=== PATIENT | male | born 1955 | race Caucasian/White ===

== ENCOUNTER 2017-04-12 13:44 | Observation (INO) | payer BC ==
[2017-04-12] MEDS ORDERED: Albuterol-Ipratrop 3 mg / 0.5 (3 ml) UD INH STA (14:23)
[2017-04-12] MEDS ORDERED: Sodium Chloride 0.9% 500 ML IV STA (14:24)
--- NOTE | 2017-04-12 14:32 | ED PDOC ---
HPI: Chest Pain Time Seen by Provider: 04/12/17 14:09 Chief Complaint (Nursing): Chest Pain Chief Complaint (Provider): Chest Pain History Per: Patient History/Exam Limitations: no limitations Onset/Duration Of Symptoms: Days (x 4) Current Symptoms Are (Timing): Still Present Additional Complaint(s): Jaun is a 62 year old male who presents to the emergency department with chest pain for 4 days. Patient states pain comes and goes, but has been constant today. Patient reports shortness of breath. Patient states he went to an urgent care today and was told to come here for further evaluation. Denies headache, dizziness, weakness, numbness, tenderness, calf pain, tenderness in the calf, long distance travel and abdominal pain. PMD: No Family Provider Past Medical History Reviewed: Historical Data, Nursing Documentation, Vital Signs Vital Signs: Last Vital Signs Temp 98.1 F 04/12/17 14:04 Pulse 119 H 04/12/17 14:04 Resp 16 04/12/17 14:04 BP 145/92 H 04/12/17 14:04 Pulse Ox 96 04/12/17 14:44 - Medical History PMH: Asthma, Seizures - Surgical History Surgical History: Appendectomy, Cholecystectomy - Family History Family History: States: Unknown Family Hx - Home Medications Home Medications: Ambulatory Orders Medication Instructions Recorded Meclizine [Meclizine*] 1 - 2 tab PO Q6 #30 tab 02/17/16 Ondansetron ODT [Zofran ODT] 4 mg PO TID #21 odt 02/17/16 Tamsulosin [Flomax] 0.4 mg PO DAILY #15 cap 02/25/17 - Allergies Allergies/Adverse Reactions: Allergies Allergy/AdvReac Type Severity Reaction Status Date / Time codeine AdvReac NAUSEA Verified 04/12/17 14:06 paprika Allergy SHORTNESS Uncoded 02/16/16 22:40 OF BREATH Review of Systems ROS Statement: Except As Marked, All Systems Reviewed And Found Negative Constitutional: Negative for: Weakness, Other (Numbness) Cardiovascular: Positive for: Chest Pain Respiratory: Positive for: Shortness of Breath Gastrointestinal: Negative for: Abdominal Pain Musculoskeletal: Negative for: Other (Calf pain and tenderness in the calf) Neurological: Negative for: Headache Physical Exam - Reviewed Nursing Documentation Reviewed: Yes Vital Signs Reviewed: Yes - Physical Exam Appears: Positive for: Non-toxic, No Acute Distress Head Exam: Positive for: ATRAUMATIC, NORMOCEPHALIC Skin: Positive for: Warm, Dry Eye Exam: Positive for: Normal appearance, EOMI, PERRL ENT: Positive for: Normal ENT Inspection Neck: Positive for: Normal, Supple Cardiovascular/Chest: Positive for: Regular Rate, Rhythm. Negative for: Murmur Respiratory: Positive for: Normal Breath Sounds. Negative for: Respiratory Distress Gastrointestinal/Abdominal: Positive for: Normal Exam, Soft. Negative for: Tenderness Back: Positive for: Normal Inspection. Negative for: L CVA Tenderness, R CVA Tenderness Extremity: Positive for: Normal ROM. Negative for: Pedal Edema, Deformity Neurologic/Psych: Positive for: Alert, Oriented - Laboratory Results Result Diagrams: 04/12/17 14:45 04/12/17 14:45 - ECG ECG: Positive for: Interpreted By Me, Viewed By Me ECG Rhythm: Positive for: Normal QRS, Normal ST Segment, Sinus Rhythm O2 Sat by Pulse Oximetry: 96 (RA) Pulse Ox Interpretation: Normal - Radiology X-Ray: Read By Radiologist X-Ray Interpretation: No Acute Disease - Progress ED Course And Treament: 1625: Stable. AAOx3. Pain free. Spoke with hospitalist Dr. Baldwin. Will admit obs tele. Medical Decision Making Medical Decision Making: Time: 14:23 Impression: Chest Pain Evaluation Plan: - EKG - B-Type Natriuretic Peptide - CMP - Troponion I - CBC - Partial Thromboplastin Time - Prothrombin Time - Portable Chest X-Ray - Aspirin 325 mg PO - Duoneb 3 mg /0.5 mg (3 ml) UD - Sodium Chloride 0.9% 500 ml IV 100 mls/hr Time: 14:38 Chest X-Ray FINDINGS: LUNGS: No active pulmonary disease. PLEURA: No significant pleural effusion identified, no pneumothorax apparent. CARDIOVASCULAR: Normal. OSSEOUS STRUCTURES: Unchanged. VISUALIZED UPPER ABDOMEN: Normal. OTHER FINDINGS: None. IMPRESSION: No active disease. Scribe Attestation: Documented by Rom Kearns, acting as a scribe for Jonel Mays MD Provider Scribe Attestation: All medical record entries made by the Scribe were at my direction and personally dictated by me. I have reviewed the chart and agree that the record accurately reflects my personal performance of the history, physical exam, medical decision making, and the department course for this patient. I have also personally directed, reviewed, and agree with the discharge instructions and disposition. Disposition - Clinical Impression Clinical Impression: Chest pain - Patient ED Disposition Is Patient to be Admitted: Yes Counseled Patient/Family Regarding: Studies Performed, Diagnosis - Disposition Disposition Time: 16:26 Condition: FAIR - Pt Status Changed To: Hospital Disposition Of: Observation - POA Present On Arrival: None Core Measure Indicators: Chest Pain
--- NOTE | 2017-04-12 14:40 | RAD ---
HISTORY: dyspnea COMPARISON: Chest radiograph dated 09/08/2015 FINDINGS: LUNGS: No active pulmonary disease. PLEURA: No significant pleural effusion identified, no pneumothorax apparent. CARDIOVASCULAR: Normal. OSSEOUS STRUCTURES: Unchanged. VISUALIZED UPPER ABDOMEN: Normal. OTHER FINDINGS: None. IMPRESSION: No active disease.
[2017-04-12 14:58] LABS: BASO # 0.1 K/uL (0.0-0.2); BASO % 0.6 % (0.0-2.0); EOS # 0.2 K/uL (0.0-0.7); EOS % 1.5 % (0.0-4.0); HEMATOCRIT 44.6 % (35.0-51.0); LYMPH # 2.1 K/uL (1.0-4.3); LYMPH % 15.3 % (20.0-40.0); MEAN CELL VOLUME 86.6 fl (80.0-94.0); MEAN CORPUSCULAR HEMOGLOBIN 28.5 pg (27.0-31.0); MEAN PLATELET VOLUME 8.1 fl (7.2-11.7); MONO # 0.7 K/uL (0.0-0.8); NEUT # 10.7 K/uL (1.8-7.0); NEUT % 77.6 % (50.0-75.0); RED CELL DISTRIBUTION WIDTH 15.1 % (11.5-14.5); WHITE BLOOD COUNT 13.8 K/uL (4.8-10.8)
[2017-04-12] MEDS ORDERED: Albuterol-Ipratrop 3 mg / 0.5 (3 ml) UD ONE (14:58)
[2017-04-12 15:07] LABS: ALB/GLOB RATIO 1.3 (1.0-2.1); ALKALINE PHOSPHATASE 69 U/L (38-126); ALT/SGPT 30 U/L (21-72); AST/SGOT 17 U/L (17-59); BILIRUBIN,TOTAL 0.4 mg/dl (0.2-1.3); BLOOD UREA NITROGEN 20 mg/dl (9-20); CALCIUM 9.1 mg/dL (8.4-10.2); CARBON DIOXIDE 25 mmol/L (22-30); CHLORIDE 107 mmol/L (98-107); GFR AFRICAN-AMERICAN > 60; GLUCOSE,RANDOM 130 mg/dL (75-110); LIPASE 97 U/L (23-300); POTASSIUM 3.6 MMOL/L (3.6-5.0); SODIUM 143 mmol/l (132-148); TOTAL PROTEIN 7.2 G/DL (6.3-8.2)
[2017-04-12 15:24] LABS: PARTIAL THROMBOPLASTIN TIME 25.7 Seconds (25.6-37.1)
--- NOTE | 2017-04-12 17:33 | CP.PCM.HP ---
History of Present Illness - History of Present Illness History of Present Illness: Chief Complaint: dyspnea, chest pain HPI: 62 year old male BPH, asthma, GERD, morbid obesity presents to the emergency room with a 4 day history of on and off worsening moderate sternal chest pain/pressure and dyspnea while at rest, associated with some diaphoresis as well. Patient states it does not feel the same as when he gets heartburn. HD stable, NAD. Obstele for cardiac monitoring, trend cardiac enzymes and to be evaluated by Cardiology in AM. ROS: as per HPI, all other systems reviewed and negative by me PMH: BPH, asthma, GERD, morbid obesity PSH: appendectomy, cholecystectomy, tonsillectomy Family History: Parkinsons, DM, HTN Social History: denies tobacco, etoh, ivdu Home Medications: as above Allergies: codeine, paprika Temp Pulse Resp BP Pulse Ox 98 F 89 19 138/98 H 100 04/12/17 17:24 04/12/17 17:24 04/12/17 17:24 04/12/17 17:24 04/12/17 17:24 Constitutional- cooperative, awake, alert. Head- NCAT, PERRL Eye- PERRL, normal accommodation ENT- normal exam, MMM. Neck- normal inspection, supple, no JVD Respiratory- CTAB, no wheezes rales rhonchi Cardiovascular- RRR, +S1, +S2 no MRG GI/Abdominal- normal bowel sounds, soft Skin- warm, dry Extremities Exam- normal capillary refill, normal inspection Neurological Exam- alert, oriented Psych- normal mood, normal affect Labs: Most Recent Lab Values WBC 13.8 K/uL (4.8-10.8) H 04/12/17 14:45 RBC 5.15 Mil/uL (4.40-5.90) 04/12/17 14:45 Hgb 14.7 g/dL (12.0-18.0) 04/12/17 14:45 Hct 44.6 % (35.0-51.0) 04/12/17 14:45 MCV 86.6 fl (80.0-94.0) D 04/12/17 14:45 MCH 28.5 pg (27.0-31.0) 04/12/17 14:45 MCHC 33.0 g/dL (33.0-37.0) 04/12/17 14:45 RDW 15.1 % (11.5-14.5) H 04/12/17 14:45 Plt Count 287 K/uL (130-400) 04/12/17 14:45 MPV 8.1 fl (7.2-11.7) 04/12/17 14:45 Neut % (Auto) 77.6 % (50.0-75.0) H 04/12/17 14:45 Lymph % (Auto) 15.3 % (20.0-40.0) L 04/12/17 14:45 [place] % (Auto) 5.0 % (0.0-10.0) 04/12/17 14:45 Eos % (Auto) 1.5 % (0.0-4.0) 04/12/17 14:45 Baso % (Auto) 0.6 % (0.0-2.0) 04/12/17 14:45 Neut # 10.7 K/uL (1.8-7.0) H 04/12/17 14:45 Lymph # 2.1 K/uL (1.0-4.3) 04/12/17 14:45 [place] # 0.7 K/uL (0.0-0.8) 04/12/17 14:45 Eos # 0.2 K/uL (0.0-0.7) 04/12/17 14:45 Baso # 0.1 K/uL (0.0-0.2) 04/12/17 14:45 PT 12.6 Seconds (9.8-13.1) 04/12/17 14:45 INR 1.1 (0.9-1.2) 04/12/17 14:45 APTT 25.7 Seconds (25.6-37.1) 04/12/17 14:45 Sodium 143 mmol/l (132-148) 04/12/17 14:45 Potassium 3.6 MMOL/L (3.6-5.0) 04/12/17 14:45 Chloride 107 mmol/L (98-107) 04/12/17 14:45 Carbon Dioxide 25 mmol/L (22-30) 04/12/17 14:45 Anion Gap 15 (10-20) 04/12/17 14:45 BUN 20 mg/dl (9-20) 04/12/17 14:45 Creatinine 0.8 mg/dl (0.8-1.5) 04/12/17 14:45 Est GFR ( Amer) > 60 04/12/17 14:45 Est GFR (Non-Af Amer) > 60 04/12/17 14:45 Random Glucose 130 mg/dL (75-110) H 04/12/17 14:45 Calcium 9.1 mg/dL (8.4-10.2) 04/12/17 14:45 Total Bilirubin 0.4 mg/dl (0.2-1.3) 04/12/17 14:45 AST 17 U/L (17-59) 04/12/17 14:45 ALT 30 U/L (21-72) 04/12/17 14:45 Alkaline Phosphatase 69 U/L (38-126) 04/12/17 14:45 Troponin I < 0.0120 ng/mL (0.00-0.120) 04/12/17 14:45 NT-Pro-B Natriuret Pep 32.6 pg/ml (0-900) 04/12/17 14:45 Total Protein 7.2 G/DL (6.3-8.2) 04/12/17 14:45 Albumin 4.1 g/dL (3.5-5.0) 04/12/17 14:45 Globulin 3.1 gm/dL (2.2-3.9) 04/12/17 14:45 Albumin/Globulin Ratio 1.3 (1.0-2.1) 04/12/17 14:45 Lipase 97 U/L (23-300) 04/12/17 14:45 Assessment and Plan: 62 year old male BPH, asthma, GERD, morbid obesity presents to the emergency room with a 4 day history of on and off worsening moderate sternal chest pain/ pressure and dyspnea while at rest, associated with some diaphoresis as well. Patient states it does not feel the same as when he gets heartburn. HD stable, NAD. Obstele for cardiac monitoring, trend cardiac enzymes and to be evaluated by Cardiology in AM. CHEST PAIN Cardiology consult Dr. Nishant Field appreciated and followed trend cardiac enzymes, EKG in AM Metoprolol Succinate [Toprol XL] 25 mg PO DAILY Clopidogrel [Plavix] 75 mg PO DAILY Aspirin [Aspirin Chewable] 81 mg PO DAILY Atorvastatin [Lipitor] 20 mg PO DAILY GERD Famotidine [Pepcid] 20 mg PO BID ASTHMA Levalbuterol [Xopenex] 1.25 mg INH RQ8 PRN BPH Tamsulosin [Flomax] 0.4 mg PO DAILY Enoxaparin [Lovenox] 40 mg SC DAILY Present on Admission - Present on Admission Any Indicators Present on Admission: No Past Patient History - Past Social History Smoking Status: Never Smoked - PULMONARY Hx Asthma: Yes - NEUROLOGICAL Hx Seizures: Yes - PSYCHIATRIC Hx Substance Use: No - SURGICAL HISTORY Hx Appendectomy: Yes Hx Cholecystectomy: Yes - ANESTHESIA Hx Anesthesia: No Meds Allergies/Adverse Reactions: Allergies Allergy/AdvReac Type Severity Reaction Status Date / Time codeine AdvReac NAUSEA Verified 04/12/17 14:06 paprika Allergy SHORTNESS Uncoded 02/16/16 22:40 OF BREATH Results - Vital Signs Recent Vital Signs: Last Vital Signs Temp 98 F 04/12/17 17:24 Pulse 89 04/12/17 17:24 Resp 19 04/12/17 17:24 BP 138/98 H 04/12/17 17:24 Pulse Ox 100 04/12/17 17:24 - Labs Result Diagrams: 04/12/17 14:45 04/12/17 14:45 Labs: Laboratory Results - last 24 hr 04/12/17 04/12/17 04/12/17 14:45 14:45 14:45 WBC 13.8 H RBC 5.15 Hgb 14.7 Hct 44.6 MCV 86.6 D MCH 28.5 MCHC 33.0 RDW 15.1 H Plt Count 287 MPV 8.1 Neut % (Auto) 77.6 H Lymph % (Auto) 15.3 L [place] % (Auto) 5.0 Eos % (Auto) 1.5 Baso % (Auto) 0.6 Neut # 10.7 H Lymph # 2.1 [place] # 0.7 Eos # 0.2 Baso # 0.1 PT 12.6 INR 1.1 APTT 25.7 Sodium 143 Potassium 3.6 Chloride 107 Carbon Dioxide 25 Anion Gap 15 BUN 20 Creatinine 0.8 Est GFR ( Amer) > 60 Est GFR (Non-Af Amer) > 60 Random Glucose 130 H Calcium 9.1 Total Bilirubin 0.4 AST 17 ALT 30 Alkaline Phosphatase 69 Troponin I < 0.0120 NT-Pro-B Natriuret Pep 32.6 Total Protein 7.2 Albumin 4.1 Globulin 3.1 Albumin/Globulin Ratio 1.3 Lipase 97
[2017-04-12] MEDS ORDERED: Levalbuterol 1.25 MG/3 ML Inhal Soln UD INH PRN (17:35)
[2017-04-12] MEDS: Metoprolol Succinate 25 mg XL Tab PO SCH (18:14)
[2017-04-13 00:48] VITALS: RESP 20
[2017-04-13 05:17] LABS: BASO # 0.1 K/uL (0.0-0.2); BASO % 1.1 % (0.0-2.0); EOS # 0.4 K/uL (0.0-0.7); EOS % 3.6 % (0.0-4.0); HEMATOCRIT 45.8 % (35.0-51.0); LYMPH # 2.9 K/uL (1.0-4.3); LYMPH % 23.9 % (20.0-40.0); MEAN CELL VOLUME 86.2 fl (80.0-94.0); MEAN CORPUSCULAR HGB CONC 32.5 g/dL (33.0-37.0); MONO # 0.8 K/uL (0.0-0.8); MONO % 6.5 % (0.0-10.0); NEUT # 7.9 K/uL (1.8-7.0); NEUT % 64.9 % (50.0-75.0); RED CELL DISTRIBUTION WIDTH 14.8 % (11.5-14.5); WHITE BLOOD COUNT 12.1 K/uL (4.8-10.8)
[2017-04-13 05:27] LABS: BLOOD UREA NITROGEN 16 mg/dl (9-20); CALCIUM 8.6 mg/dL (8.4-10.2); CARBON DIOXIDE 25 mmol/L (22-30); CHLORIDE 107 mmol/L (98-107); CHOLESTEROL 163 mg/dL (0-199); GFR AFRICAN-AMERICAN > 60; GLUCOSE,RANDOM 101 mg/dL (75-110); POTASSIUM 3.8 MMOL/L (3.6-5.0); SODIUM 141 mmol/l (132-148)
[2017-04-13 08:41] VITALS: PULSE 83; TEMP 98.2; O2SAT 96
[2017-04-13] MEDS: Metoprolol Succinate 25 mg XL Tab PO SCH (08:58)
[2017-04-13] MEDS ORDERED: Enoxaparin 40 mg Syringe SC SCH (09:00)
--- NOTE | 2017-04-13 10:02 | CP.PCM.CON ---
History of Present Illness - History of Present Illness History of Present Illness: This 62-year-old chronically overweight sedentary man came to the emergency room after experiencing increasing sense of chest discomfort which he ascribes to an overheated apartment. The patient has had a long history of bronchial asthma for which she uses a broncho-dilator. He is not a smoker and has no history of hypertension or diabetes. There has never been effort related chest discomfort or prior myocardial infarction or symptoms of congestive cardiac failure. There is no family history of diabetes hypertension or vascular disease. The patient describes this sensation as in the middle of his chest without any radiation without any perspiration nausea or palpitations. Physical examination shows a middle aged overweight man sitting up in a chair comfortable without any discomfort. He breathes at 16-18 breaths per minute and admits to having used broncho-dilator containing albuterol approximately one hour back. He has a heart rate of 78 bpm regular and a blood pressure of 144/94 mmHg in his right upper extremity. His jugular venous pressure was not elevated and there was no edema over his lower extremities. His pedal pulses were well felt. Extremities were warm and his nailbed where pink. There was no central or peripheral cyanosis. There was no clubbing there was no lymphadenopathy. The apex was not palpable the first and second heart sounds were normal. There was no murmur no gallop and no rales. His abdomen was soft his liver and spleen are not palpable. His electro-cardial gram showed sinus rhythm with no ST-T abnormalities indicative of active myocardial ischemia. His lab tests show a normal hemoglobin and hematocrit and platelet count. His BUN/creatinine and electrolytes were normal. His troponin level 2 were normal indicating no evidence of myocyte injury. Impression: Atypical chest pain with no evidence of acute coronary syndrome. History of bronchial asthma. The patient may be allowed to return home and be managed as an outpatient. Past Patient History - Past Medical History & Family History Past Medical History?: Yes - Past Social History Smoking Status: Never Smoked - CARDIAC Hx Cardiac Disorders: No - PULMONARY Hx Respiratory Disorders: Yes Hx Asthma: Yes - NEUROLOGICAL Hx Neurological Disorder: Yes Hx Vertigo: Yes - HEENT Hx HEENT Problems: No - RENAL Hx Chronic Kidney Disease: No - ENDOCRINE/METABOLIC Hx Endocrine Disorders: No - HEMATOLOGICAL/ONCOLOGICAL Hx Blood Disorders: No Hx Human Immunodeficiency Virus (HIV): No - INTEGUMENTARY Hx Dermatological Problems: No - MUSCULOSKELETAL/RHEUMATOLOGICAL Hx Musculoskeletal Disorders: No Hx Falls: No - GASTROINTESTINAL Hx Gastrointestinal Disorders: Yes Hx Gastroesophageal Reflux: Yes - GENITOURINARY/GYNECOLOGICAL Hx Genitourinary Disorders: No - PSYCHIATRIC Hx Psychophysiologic Disorder: No Hx Substance Use: No - SURGICAL HISTORY Hx Surgeries: Yes Hx Appendectomy: Yes Hx Cholecystectomy: Yes - ANESTHESIA Hx Anesthesia: Yes Meds Allergies/Adverse Reactions: Allergies Allergy/AdvReac Type Severity Reaction Status Date / Time codeine AdvReac NAUSEA Verified 04/12/17 14:06 paprika Allergy SHORTNESS Uncoded 02/16/16 22:40 OF BREATH - Medications Medications: Current Medications Aspirin (Aspirin Chewable) 81 mg PO DAILY [facility] Last Admin: 04/13/17 08:57 Dose: 81 mg Atorvastatin Calcium (Lipitor) 20 mg PO DAILY [facility] Last Admin: 04/13/17 08:57 Dose: 20 mg Clopidogrel Bisulfate (Plavix) 75 mg PO DAILY [facility] Last Admin: 04/13/17 08:58 Dose: 75 mg Enoxaparin Sodium (Lovenox) 40 mg SC DAILY [facility] PRN Reason: Protocol Last Admin: 04/13/17 08:58 Dose: 40 mg Famotidine (Pepcid) 20 mg PO BID [facility] Last Admin: 04/13/17 08:58 Dose: 20 mg Levalbuterol HCl (Xopenex) 1.25 mg INH RQ8 PRN PRN Reason: Shortness of Breath Metoprolol Succinate (Toprol Xl) 25 mg PO DAILY [facility] Last Admin: 04/13/17 08:58 Dose: 25 mg Tamsulosin HCl (Flomax) 0.4 mg PO DAILY [facility] Last Admin: 04/13/17 08:57 Dose: 0.4 mg Results - Vital Signs Recent Vital Signs: Last Vital Signs Temp 98.2 F 04/13/17 08:00 Pulse 83 04/13/17 09:00 Resp 20 04/13/17 08:00 BP 158/102 H 04/13/17 08:58 Pulse Ox 96 04/13/17 08:00 - Labs Result Diagrams: 04/13/17 04:45 04/13/17 04:45 Labs: Laboratory Results - last 24 hr 04/12/17 04/12/17 04/12/17 14:45 14:45 14:45 WBC 13.8 H RBC 5.15 Hgb 14.7 Hct 44.6 MCV 86.6 D MCH 28.5 MCHC 33.0 RDW 15.1 H Plt Count 287 MPV 8.1 Neut % (Auto) 77.6 H Lymph % (Auto) 15.3 L [place] % (Auto) 5.0 Eos % (Auto) 1.5 Baso % (Auto) 0.6 Neut # 10.7 H Lymph # 2.1 [place] # 0.7 Eos # 0.2 Baso # 0.1 PT 12.6 INR 1.1 APTT 25.7 Sodium 143 Potassium 3.6 Chloride 107 Carbon Dioxide 25 Anion Gap 15 BUN 20 Creatinine 0.8 Est GFR ( Amer) > 60 Est GFR (Non-Af Amer) > 60 Random Glucose 130 H Calcium 9.1 Total Bilirubin 0.4 AST 17 ALT 30 Alkaline Phosphatase 69 Troponin I < 0.0120 NT-Pro-B Natriuret Pep 32.6 Total Protein 7.2 Albumin 4.1 Globulin 3.1 Albumin/Globulin Ratio 1.3 Triglycerides Cholesterol LDL Cholesterol Direct HDL Cholesterol Lipase 97 04/13/17 04/13/17 04:45 04:45 WBC 12.1 H RBC 5.31 Hgb 14.9 Hct 45.8 MCV 86.2 MCH 28.0 MCHC 32.5 L RDW 14.8 H Plt Count 280 MPV 8.0 Neut % (Auto) 64.9 Lymph % (Auto) 23.9 [place] % (Auto) 6.5 Eos % (Auto) 3.6 Baso % (Auto) 1.1 Neut # 7.9 H Lymph # 2.9 [place] # 0.8 Eos # 0.4 Baso # 0.1 PT INR APTT Sodium 141 Potassium 3.8 Chloride 107 Carbon Dioxide 25 Anion Gap 13 BUN 16 Creatinine 0.7 L Est GFR ( Amer) > 60 Est GFR (Non-Af Amer) > 60 Random Glucose 101 Calcium 8.6 Total Bilirubin AST ALT Alkaline Phosphatase Troponin I < 0.0120 NT-Pro-B Natriuret Pep Total Protein Albumin Globulin Albumin/Globulin Ratio Triglycerides 138 Cholesterol 163 LDL Cholesterol Direct 63 HDL Cholesterol 56 Lipase
--- NOTE | 2017-04-13 10:39 | CP.PCM.DIS ---
Provider - Provider Date of Admission: 04/12/17 16:26 Attending physician: Cass Baldwin DO Time Spent in preparation of Discharge (in minutes): 30 Diagnosis - Discharge Diagnosis (1) Chest pain Status: Acute Hospital Course - Lab Results Lab Results: Most Recent Lab Values WBC 12.1 K/uL (4.8-10.8) H 04/13/17 04:45 RBC 5.31 Mil/uL (4.40-5.90) 04/13/17 04:45 Hgb 14.9 g/dL (12.0-18.0) 04/13/17 04:45 Hct 45.8 % (35.0-51.0) 04/13/17 04:45 MCV 86.2 fl (80.0-94.0) 04/13/17 04:45 MCH 28.0 pg (27.0-31.0) 04/13/17 04:45 MCHC 32.5 g/dL (33.0-37.0) L 04/13/17 04:45 RDW 14.8 % (11.5-14.5) H 04/13/17 04:45 Plt Count 280 K/uL (130-400) 04/13/17 04:45 MPV 8.0 fl (7.2-11.7) 04/13/17 04:45 Neut % (Auto) 64.9 % (50.0-75.0) 04/13/17 04:45 Lymph % (Auto) 23.9 % (20.0-40.0) 04/13/17 04:45 [place] % (Auto) 6.5 % (0.0-10.0) 04/13/17 04:45 Eos % (Auto) 3.6 % (0.0-4.0) 04/13/17 04:45 Baso % (Auto) 1.1 % (0.0-2.0) 04/13/17 04:45 Neut # 7.9 K/uL (1.8-7.0) H 04/13/17 04:45 Lymph # 2.9 K/uL (1.0-4.3) 04/13/17 04:45 [place] # 0.8 K/uL (0.0-0.8) 04/13/17 04:45 Eos # 0.4 K/uL (0.0-0.7) 04/13/17 04:45 Baso # 0.1 K/uL (0.0-0.2) 04/13/17 04:45 PT 12.6 Seconds (9.8-13.1) 04/12/17 14:45 INR 1.1 (0.9-1.2) 04/12/17 14:45 APTT 25.7 Seconds (25.6-37.1) 04/12/17 14:45 Sodium 141 mmol/l (132-148) 04/13/17 04:45 Potassium 3.8 MMOL/L (3.6-5.0) 04/13/17 04:45 Chloride 107 mmol/L (98-107) 04/13/17 04:45 Carbon Dioxide 25 mmol/L (22-30) 04/13/17 04:45 Anion Gap 13 (10-20) 04/13/17 04:45 BUN 16 mg/dl (9-20) 04/13/17 04:45 Creatinine 0.7 mg/dl (0.8-1.5) L 04/13/17 04:45 Est GFR ( Amer) > 60 04/13/17 04:45 Est GFR (Non-Af Amer) > 60 04/13/17 04:45 Random Glucose 101 mg/dL (75-110) 04/13/17 04:45 Calcium 8.6 mg/dL (8.4-10.2) 04/13/17 04:45 Total Bilirubin 0.4 mg/dl (0.2-1.3) 04/12/17 14:45 AST 17 U/L (17-59) 04/12/17 14:45 ALT 30 U/L (21-72) 04/12/17 14:45 Alkaline Phosphatase 69 U/L (38-126) 04/12/17 14:45 Troponin I < 0.0120 ng/mL (0.00-0.120) 04/13/17 04:45 NT-Pro-B Natriuret Pep 32.6 pg/ml (0-900) 04/12/17 14:45 Total Protein 7.2 G/DL (6.3-8.2) 04/12/17 14:45 Albumin 4.1 g/dL (3.5-5.0) 04/12/17 14:45 Globulin 3.1 gm/dL (2.2-3.9) 04/12/17 14:45 Albumin/Globulin Ratio 1.3 (1.0-2.1) 04/12/17 14:45 Triglycerides 138 mg/DL (0-149) 04/13/17 04:45 Cholesterol 163 mg/dL (0-199) 04/13/17 04:45 LDL Cholesterol Direct 63 mg/dL (0-129) 04/13/17 04:45 HDL Cholesterol 56 MG/DL (30-70) 04/13/17 04:45 Lipase 97 U/L (23-300) 04/12/17 14:45 - Hospital Course Hospital Course: 62 year old male BPH, asthma, GERD, morbid obesity presents to the emergency room with a 4 day history of on and off worsening moderate sternal chest pain/ pressure and dyspnea while at rest, associated with some diaphoresis as well. Patient states it does not feel the same as when he gets heartburn. HD stable, NAD. Obstele for cardiac monitoring, enzymes neg x3, evaluated by Cardiology, stable to be discharged home. Will initiate patient on ASA, TOPROL, STATIN. Patient to follow up with Cardiology and PCP in 7-10 days. CHEST PAIN Cardiology consult Dr. Nishant Field appreciated and followed trend cardiac enzymes, EKG in AM Metoprolol Succinate [Toprol XL] 25 mg PO DAILY Clopidogrel [Plavix] 75 mg PO DAILY Aspirin [Aspirin Chewable] 81 mg PO DAILY Atorvastatin [Lipitor] 20 mg PO DAILY GERD Famotidine [Pepcid] 20 mg PO BID ASTHMA Levalbuterol [Xopenex] 1.25 mg INH RQ8 PRN BPH Tamsulosin [Flomax] 0.4 mg PO DAILY Enoxaparin [Lovenox] 40 mg SC DAILY Discharge Exam - Head Exam Head Exam: ATRAUMATIC, NORMOCEPHALIC - Eye Exam Eye Exam: EOMI, Normal appearance, PERRL - ENT Exam ENT Exam: Mucous Membranes Moist, Normal Oropharynx - Respiratory Exam Respiratory Exam: Clear to PA & Lateral, NORMAL BREATHING PATTERN - Cardiovascular Exam Cardiovascular Exam: RRR, +S1, +S2 - GI/Abdominal Exam GI & Abdominal Exam: Normal Bowel Sounds, Soft - Extremities Exam Extremities exam: normal capillary refill, pedal pulses present - Back Exam Back exam: absent: CVA tenderness (L), CVA tenderness (R) - Neurological Exam Neurological exam: Alert, Oriented x3 - Psychiatric Exam Psychiatric exam: Normal Affect, Normal Mood - Skin Skin Exam: Dry, Warm Discharge Plan - Discharge Medications Prescriptions: Atorvastatin [Lipitor] 20 mg PO DAILY #30 tab Metoprolol Succinate [Toprol XL] 25 mg PO DAILY #30 tab - Follow Up Plan Condition: FAIR Disposition: HOME/ ROUTINE Additional Instructions: follow up PCP AND CARDIOLOGY IN ABOUT 7-10 DAYS Referrals: Cecil Field MD [Staff Provider] -
[2017-04-13 13:32] VITALS: BP 168/84
== END 2017-04-13 11:30 | disposition home or self-care (01) ==
LOC: H.ER 13:44 → H.ERHOLD 16:26 → H.TEL 19:34
PROVIDERS: ADMIT Student in an Organized Health Care Education/Training Program; ATTEND Student in an Organized Health Care Education/Training Program
DX: R07.89 Other chest pain (principal); I10 Essential (primary) hypertension; K21.9 Gastro-esophageal reflux disease without esophagitis; E11.9 Type 2 diabetes mellitus without complications; G20 Parkinson's disease; E66.01 Morbid (severe) obesity due to excess calories; J45.909 Unspecified asthma, uncomplicated; N40.0 Benign prostatic hyperplasia without lower urinary tract symptoms; Z79.02 Long term (current) use of antithrombotics/antiplatelets; Z88.6 Allergy status to analgesic agent
CPT/HCPCS: 36415; 71010; 80048; 80053; 80061; 83690; 83880; 84484; 85025; 85610; 85730; 99285; G0378; J1650; J7040